=== PATIENT | female | born 1970 | race Caucasian/White ===

== ENCOUNTER 2018-01-11 18:38 | Emergency (ER) | payer OTHER ==
[~2018-01-11] VITALS: Ht 170.2 cm; Wt 103.1 kg
[~2018-01-11 18:38] MED LIST: ACEBUTOLOL HCL200 MG PO; SECTRAL200 M1 PO; THERAGRAN1 TABLET PO; Vitamin B-12 PO; ZOLOFT25 MG PO
[2018-01-11 19:05] LABS: HEMATOCRIT 32.4 % (36.0-46.0); MCH 23.3 PG (29.0-34.0); MCHC 30.9 G/DL (30.0-36.0); MCV 75.3 FL (83-99); PLATELET COUNT 278 K/uL (156-360); RBC DIS.WIDTH-CV 18.7 % (11.8-14.6); WHITE BLOOD COUNT 9.1 K/uL (4.1-10.2)
[2018-01-11 19:13] LABS: CHLORIDE 109 mEq/L (99-109); POTASSIUM 4.1 mEq/L (3.7-5.4); SODIUM 140 mEq/L (136-147)
[2018-01-11 19:15] LABS: GLUCOSE 90 mg/dL (70-99)
[2018-01-11 19:19] LABS: CREATININE 0.6 mg/dL (0.6-1.3); GFR ESTIMATE (CALCULATED) > 59 mL/min/
[2018-01-11 19:20] LABS: UREA NITROGEN (BUN) 13 mg/dL (9-23)
[2018-01-11] MEDS ORDERED: ATARAX,VISTARIL25 MG PO (20:45)
[2018-01-11] MEDS ORDERED: PERCOCET 5/31 TABLET PO (20:45)
[2018-01-11] MEDS ORDERED: SKELAXIN800 MG PO (20:45)
[2018-01-11 21:07] VITALS: BP 164/105
== END 2018-01-11 21:08 | disposition home or self-care (01) ==
LOC: EME 18:38
PROVIDERS: Physician Assistant
DX: S03.02XA Dislocation of jaw, left side, initial encounter (principal); I10 Essential (primary) hypertension; F41.9 Anxiety disorder, unspecified; Z73.3 Stress, not elsewhere classified; X58.XXXA Exposure to other specified factors, initial encounter; F17.200 Nicotine dependence, unspecified, uncomplicated
CPT/HCPCS: 80048; 85027; 93005; 99281; 99284; J1885